=== PATIENT | female | born 1990 | race Caucasian/White ===

== ENCOUNTER 2018-08-01 15:44 | Inpatient (IN) | payer OTHER ==
[~2018-08-01] VITALS: Ht 162.6 cm; Wt 52.2 kg
[~2018-08-01 15:44] MED LIST: HUMALOG100 U/ML; HUMALOG100 UNIT/1 SQ; LEVEMIR100 UNIT/1 SQ; PRENATABS FA T1 EACH PO
--- NOTE | 2018-08-01 16:02 | NUR ---
SE RECIBE PACIENTE ALERTA Y ORIENTADA X3 QUE REFIERE DOLOR ABDOMINAL DARLINE Y VOMITOS X6 DESDE ESTA MANANA. PACIENTE VERBALIZA ESTAR EMBARAZADA POR 6 SEMANAS Y PADECER DE JUDAH VESICULA VAGA.
--- NOTE | 2018-08-01 19:28 | NUR ---
PT ALERTA Y ORIENADA X3 ESFERAS SE LE ORIENTA SOBRE TX Y REFIERE ENTEDER. SE SHASTA MUESTRAS DE ADRIAN Y VENOPUNCION CON TECNICAS ASEPTICAS. SE ADMINISTRAN MEDICAMENTOS E IVFLUIDS PATENTE. PT TOL[place].
--- NOTE | 2018-08-02 01:30 | NUR ---
SE RECIBE PACIENTE ALERTA Y ORIENTADA EN CAMA CON BARRANDAS ELEVADAS POR WESTON SEGURIDAD , PACIENTE CON VENOPUCNION PATENTE JAMIE DE EDEMA Y ERRITEMA CON .9 NSS BAJANDO A 150 ML/HR. PACIENTE EN ESPERA DE CONSULTA CON EL DR. BAILEY.SE KAVEH A PACIENTE EN CAMA BAJO OBSERVACION POR CAMBIOS EN WEST[place] CONDICION.
--- NOTE | 2018-08-02 07:49 | NUR ---
SE RECIBE PTE DEL TURNO ANTERIOR, ALERTA Y ORIENTADA X 3 ESFERAS, EN CAMA NIVEL MAS BAJO, PATEL DE IDENTIFICACION Y BARANDAS ELEVADAS POR PRECAUCION. SE OBSERVA CON BUEN PATRON RESPIRATORIO Y PIEL TIBIA AL TACTO. IV PATENTE Y JAMIE DE EDEMA O ERITEMA CON 0.9% NSS @150ML/HR. PTE REFIERE DOLOR ABDOMINAL SE NOTIFICA A DR VILLAFUERTE. PENDIENTE A CONSULTA CON DR BAILEY.
== END 2018-08-04 11:49 | disposition home or self-care (01) | DRG 832 ==
LOC: ER 15:44 → OB/GYN 08-02 08:00
PROVIDERS: ADMIT Obstetrics & Gynecology Maternal & Fetal Medicine
PROC: BU46ZZZ Ultrasonography of Uterus (ICD-10-PCS; principal; 2018-08-02)
DX: O21.0 Mild hyperemesis gravidarum (principal); O24.111 Pre-existing type 2 diabetes mellitus, in pregnancy, first trimester; E11.9 Type 2 diabetes mellitus without complications; Z79.4 Long term (current) use of insulin; Z3A.01 Less than 8 weeks gestation of pregnancy